=== PATIENT | male | born 1960 | race Caucasian/White ===

== ENCOUNTER 2019-05-13 02:58 | Inpatient (IN) | payer OTHER ==
[2019-05-13] MEDS ORDERED: Diltiazem IV push/loading dose 5 MG/ML 5 ML vial (25 mg) IV SLOW PU ONE (03:07)
[2019-05-13] MEDS ORDERED: NS 0.9% 1000 ML** 1,000 ML IV ONE ×2 (03:17→04:04)
[2019-05-13] MEDS ORDERED: Ondansetron INJ* 2 MG/ML VIAL IV ONE (03:17)
[2019-05-13] MEDS ORDERED: NS 0.9% 100 ML* 100 ML ONE (03:17)
--- NOTE | 2019-05-13 03:21 | ED ---
HPI Chest Pain - HPI Summary HPI Summary: This pt is a 58 y/o male presenting to [facility] c/o chest pain, abd pain, nausea and vomiting. Pt reports he has not been feeling well for the past 2 weeks, feeling weak with malaise. Yesterday, 05/12/19, pt woke up feeling weak again and blood sugar was 65. He notes he had indigestion pain on 05/12 after eating and took 2 antacid tablets. He notes the last time he ate was at 14:30 on 05/12 and had 2 episodes of emesis at 23:00 on 05/12. He notes prior to vomiting for the whole day he had been feeling weak. The first time he vomited he describes a sandwich he had earlier and the second time he vomited he describes dark brown emesis. Currently he notes he has abd pain and chest tightness. Denies hx of afib. Pt does report hx arrhythmia for which he has been seeing his negotiations director for over 1 year now. He also has elevated kidney level and is being followed up by a gang supervisor pipe lines (who discontinued his lisinopril and cut back his metformin). Pt is visiting from [place]. - History of Current Complaint Chief Complaint: EDChestPainROMI Hx Obtained From: Patient Onset/Duration: Started Hours Ago, Still Present Timing: Lasting Hours Current Severity: Moderate Pain Intensity: 5 Pain Scale Used: 0-10 Numeric Chest Pain Location: Mid Sternal Chest Pain Radiates: No Character: Tightness Aggravating Factor(s): Nothing Alleviating Factor(s): Nothing Associated Signs and Symptoms: Positive: Chest Pain, Weakness, Nausea, Abdominal Pain, Vomiting. Negative: Fever, Chills - Allergy/Home Medications Allergies/Adverse Reactions: Allergies Allergy/AdvReac Type Severity Reaction Status Date / Time No Known Allergies Allergy Verified 05/13/19 03:17 Home Medications: Home Medications Aspirin [Adult Low Dose Aspirin EC] 81 mg PO DAILY 05/13/19 [History Confirmed 05/13/19] Carvedilol [Coreg] 25 mg PO BID 05/13/19 [History Confirmed 05/13/19] Fenofibrate,Micronized [Fenofibrate] 134 mg PO DAILY 05/13/19 [History Confirmed 05/13/19] Folic Acid 1 mg PO DAILY 05/13/19 [History Confirmed 05/13/19] Glyburide/Metformin HCl [Glyburide/Metformin HCl 5-500 mg] 4 tab PO DAILY [History Confirmed 05/13/19] Linagliptin (NF) [Tradjenta (NF)] 5 mg PO DAILY 05/13/19 [History Confirmed ] Rosuvastatin Calcium 20 mg PO DAILY 05/13/19 [History Confirmed 05/13/19] PMH/Surg Hx/FS Hx/Imm Hx Endocrine/Hematology History: Reports: Hx Diabetes - Type 2 Cardiovascular History: Reports: Hx Hypercholesterolemia, Hx Hypertension Denies: Hx Atrial Fibrillation History: Reports: Other Problems/Disorders - elevated kidney level Infectious Disease History: No Infectious Disease History: Denies: Traveled Outside the [place] in Last 30 Days - Family History Known Family History: Positive: Non-Contributory - Social History Alcohol Use: None Substance Use Type: Reports: None Smoking Status (MU): Never Smoked Tobacco Review of Systems Negative: Fever Positive: Chest Pain Positive: Abdominal Pain, Vomiting, Nausea Positive: Weakness All Other Systems Reviewed And Are Negative: Yes Physical Exam - Summary Physical Exam Summary: Appearance: Well-nourished, Anxious appearing. Middle aged man lying on the stretcher in no acute distress. Skin: Warm, dry, no obvious rash. Somewhat pale. Eyes: sclera anicteric, no conjunctival pallor ENT: mucous membranes moist, pharynx appears normal Neck: Supple, nontender Respiratory: Clear to auscultation, no signs of respiratory distress Cardiovascular: Notably marked tachycardia with irregularly irregular rhythm. No murmurs. Normal distal pulses in tibial and radial bilaterally. Abdomen: Soft, nontender, normal active bowel sounds present Musculoskeletal: Normal, Strength/ROM Intact Neurological: A&Ox3, awake and alert, mentation is normal, speech is fluent and appropriate Psychiatric: affect is normal, does not appear anxious or depressed Triage Information Reviewed: Yes Vital Signs On Initial Exam: Initial Vitals Temp Pulse Resp BP Pulse Ox 98.0 F 112 20 159/94 100 05/13/19 02:58 05/13/19 02:58 05/13/19 02:58 05/13/19 02:58 05/13/19 02:58 Vital Signs Reviewed: Yes Diagnostics - Vital Signs Vital Signs Temp Pulse Resp BP Pulse Ox 05/13/19 02:58 98.0 F 112 20 159/94 100 - Laboratory Result Diagrams: 07/27/19 03:32 05/13/19 09:25 Lab Statement: Any lab studies that have been ordered have been reviewed, and results considered in the medical decision making process. - Radiology chest XR Radiology Interpretation Completed By: ED Physician Summary of Radiographic Findings: no acute process - EKG 03:01 Cardiac Rate: Tachycardia - at 152 bpm EKG Rhythm: Atrial Fibrillation Summary of EKG Findings: Atrial fibrillation with RVR and diffuse ST depressions likely rate related ischemia. 03:24 Cardiac Rate: NL - at 99 bpm EKG Rhythm: Atrial Fibrillation Summary of EKG Findings: Posterior leads - no posterior STEMI. Re-Evaluation - Re-Evaluation First Eval Re-Evaluation Time: 04:01 Change: Improved Comment: Chest pain has nearly resolved. His heart rate is down to nearly 100. Chest Pain Course/Dx - Course Assessment/Plan: Pt is a 58 y/o male, with hx of DM, HTN, presenting to [facility] c/ o chest pain, abd pain, nausea and vomiting. Pt reports he has not been feeling well for the past 2 weeks, feeling weak with malaise. Yesterday, 05/12/19, pt woke up feeling weak again and blood sugar was 65. Pt with 2 episodes of emesis. Currently he notes he has abd pain and chest tightness. Denies hx of afib. Test results remarkable for hemoglobin of 11.2, hematocrit of 31, BUN of 38, creatinine of 3.89, glucose of 387, calcium 13.1, troponin of 0.49. In the ED course the pt was given IV fluids, Cardizem, insulin, Zofran. Discussed the case with Dr. Chaparro, hospitalist, who accepted the pt for admission. Dx: acute kidney injury, rapid afib with RVR, moderate hypercalcemia. - Diagnoses Provider Diagnoses: Acute kidney injury, Atrial fibrillation with RVR, Hypercalcemia - Provider Notifications Discussed Care Of Patient With: Lizette Chaparro - hospitalist Time Discussed With Above Provider: 04:09 Instructed by Provider To: Admit As Inpatient - Critical Care Time Critical Care Time: 30-74 min Discharge - Sign-Out/Discharge Documenting (check all that apply): Patient Departure - Admit to [facility] All imaging exams completed and their final reports reviewed: No Patient Received Moderate/Deep Sedation with Procedure: No - Discharge Plan Condition: Stable Disposition: ADMITTED TO [facility] - Billing Disposition and Condition Condition: STABLE Disposition: Admitted to [facility] - Attestation Statements Document Initiated by Marlyn: Yes Documenting Luis Aibremington: Chinyere Esquivel Provider For Whom Marlyn is Documenting (Include Credential): Nik Mays MD Scribe Attestation: Chinyere Moran scribed for Nik Mays MD on 05/14/19 at 0220. Scribe Documentation Reviewed: Yes Provider Attestation: The documentation as recorded by the Chinyere meadows accurately reflects the service I personally performed and the decisions made by me, Nik Mays MD Status of Scribe Document: Viewed
[2019-05-13 03:38] LABS: ABS Lymphocytes 0.8 10^3/ul (1.0-4.8); ABS Monocytes 0.4 10^3/ul (0-0.8); ABS Neutrophils 9.3 10^3/ul (1.5-7.7); Eosinophil % 0.1 %; Hematocrit 31 % (42-52); Hemoglobin 11.2 g/dL (14.0-18.0); Lymphocyte % 7.4 %; Mean Corpuscular HGB Conc 36 g/dL (31-36); Mean Corpuscular Hemoglobin 31 pg (27-31); Mean Corpuscular Volume 85 fL (80-94); Mean Platelet Volume 8.4 fL (7.4-10.4); Platelet Count 172 10^3/uL (150-450); Red Blood Count 3.63 10^6 /uL (4.18-5.48); Red Cell Distribution Width 14 % (10-15); White Blood Count 10.5 10^3/uL (3.5-10.8)
[2019-05-13] MEDS: Diltiazem IV VIAL* 125 MG in NS 0.9% 100 ML* 100 ML IV ONE ×2 (03:44→04:21)
[2019-05-13 03:54] LABS: ALT 19 U/L (7-52); AST 28 U/L (13-39); Albumin 4.1 g/dL (3.2-5.2); Albumin/Globulin Ratio 1.2 (1-3); Alkaline Phosphatase 41 U/L (34-104); Anion Gap 14 mmol/L (2-11); BUN/Creatinine Ratio 9.8 (8-20); Blood Urea Nitrogen 38 mg/dL (6-24); CO2 Carbon Dioxide 25 mmol/L (22-32); Chloride 96 mmol/L (101-111); EGFR African American 19.5 (>60); EGFR Non-African American 16.1 (>60); Globulin 3.4 g/dL (2-4); Glucose 387 mg/dL (70-100); Potassium 3.5 mmol/L (3.5-5.0); Sodium 135 mmol/L (135-145); Total Protein 7.5 g/dL (6.4-8.9)
[2019-05-13 03:58] LABS: Calcium 13.1 mg/dL (8.6-10.3)
[2019-05-13] MEDS ORDERED: Insulin REGULAR(*) 1 UNITS UNIT SUBCUT ONE (04:10)
[2019-05-13 04:14] LABS: TSH (Thyroid Stimulating Horm) 0.91 mcIU/mL (0.34-5.60)
[2019-05-13 04:21] LABS: INR 1.24 (0.82-1.09)
[2019-05-13] MEDS ORDERED: PROCHLORPERAZINE INJ 5 MG/ML 2 ML VIAL IV ONE (04:36)
[2019-05-13 04:51] LABS: Troponin I 0.49 ng/mL (<0.04)
[2019-05-13] MEDS ORDERED: Morphine INJ* 2 MG/ML 1 ML SYRINGE (TWO MG - NEW SYRINGE VERSION) IV ONE (05:30)
[2019-05-13] MEDS ORDERED: Dextrose 50% VIAL 50 ml IV PUSH PRN (05:35)
[2019-05-13] MEDS ORDERED: Ondansetron INJ* 2 MG/ML VIAL IV PRN (05:40)
[2019-05-13] MEDS ORDERED: Acetaminophen TAB* 325 MG PO PRN (05:40)
[2019-05-13] MEDS ORDERED: Dextrose 50% Syringe 50 ML* 25 GM/50 ML SYRINGE IV PUSH PRN (05:45)
[2019-05-13] MEDS ORDERED: Insulin LISPRO* 1 UNITS UNIT SUBCUT ONE (05:45)
[2019-05-13] MEDS ORDERED: Heparin DRIP 25,000 UNITS(*) 25,000 UNITS/500 ML BAG IV SCH (05:45)
[2019-05-13] MEDS ORDERED: Metoprolol Tartrate IV* 1 MG/ML 5 ML VIAL IV ONE (05:55)
[2019-05-13] MEDS ORDERED: Diltiazem DRIP* 100 MG/100 ML ADDV.BAG IV SCH (06:00)
[2019-05-13] MEDS ORDERED: Insulin LISPRO* 1 UNITS UNIT SUBCUT SCH (06:00)
[2019-05-13] MEDS ORDERED: Heparin VIAL(*) 5000 UNITS/ML VIAL (FIVE THOUSAND) IV PRN (06:18)
[2019-05-13 06:34] LABS: C Reactive Protein 5.89 mg/L (<8.01)
[2019-05-13 06:45] LABS: Urine Appearance Clear; Urine Bacteria Absent (Absent); Urine Bilirubin Negative (Negative); Urine Blood 2+ (Negative); Urine Color Straw; Urine Glucose 3+(>=500 mg/dL) (Negative); Urine Ketones Trace (Negative); Urine Nitrite Negative (Negative); Urine Protein 1+(30 mg/dL) (Negative); Urine Red Blood Cell 1+(3-5/hpf) (Absent); Urine Urobilinogen Negative (Negative); Urine White Blood Cell Trace(0-5/hpf) (Absent)
[2019-05-13 06:49] LABS: Troponin I 1.45 ng/mL (<0.04)
[2019-05-13] MEDS ORDERED: Diltiazem 125 mg in 125 mL D5W PREMIX (continuous infusion) IV SCH (07:00)
[2019-05-13] MEDS: Heparin DRIP 25,000 UNITS(*) 25,000 UNITS/500 ML BAG IV SCH (07:34)
[2019-05-13] MEDS: Aspirin EC TAB* 81 MG TAB.EC PO SCH (07:54)
[2019-05-13] MEDS: Atorvastatin* 40 MG TAB PO SCH (07:54)
[2019-05-13] MEDS: NS 0.9% 1000 ML** 1,000 ML IV SCH ×2 (07:55→14:59)
[2019-05-13] MEDS ORDERED: Diltiazem IV BAG* D5W Premix 125 MG/125 ML BAG IV SCH (09:00)
[2019-05-13 09:51] LABS: Calcium 11.4 mg/dL (8.6-10.3); EGFR African American 18.8 (>60); EGFR Non-African American 15.5 (>60); Potassium 3.5 mmol/L (3.5-5.0)
--- NOTE | 2019-05-13 10:26 | CARD ---
ECHOCARDIOGRAM REPORT: DATE OF PROCEDURE: 05/13/19 REASON FOR EVALUATION: Chest pain, non-ST elevation IL, abnormal EKG. This was an urgent focussed study to assess wall motion. Study revealed repeat of a svuz-[id number] ly reduced LV function with EF of 40% to 45%. There appeared to be hypokinesis of the inferior/poste rior segments with an area of thinning and akinesis towards the base of the inferior wall. This coul d represent old infarct with yevgeniy-infarct ischemic dysfunction versus recent IL. The patient is being followed clinically. [id number]/[facility] #: [id number]
--- NOTE | 2019-05-13 11:07 | HP ---
CC: Dr. Burns; Dr. Simone Begum * HISTORY AND PHYSICAL: DATE OF ADMISSION: 05/13/19 PRIMARY CARE PROVIDER: Dr. Simone Begum from [place], [place], the phone number is [phone]. CHIEF COMPLAINT: Chest pain, nausea, and vomiting. HISTORY OF PRESENT ILLNESS: Mr. Hidalgo is a 58-year-old male with history of hypertension, diabetes who was driving from [place] to [place] yesterday to visit his daughter at a camp in the [place] area. The patient stated that at approximately 4 p.m. when in the car, he started having nausea and vomiting and substernal chest pain. The pain was at approximately 6/10 in intensity. He came in to the emergency department at 3 a.m. on 05/13/19 complaining of chest pain. He was noted to be in atrial fibrillation with rapid ventricular response with a heart rate in the 150s. He also continued to complain of chest pain. His calcium was markedly elevated at 13 and his creatinine was 3.8. The patient stated that approximately 2 weeks ago, he went to see a welding pantograph machine operator since his kidney function tests were abnormal. This was the first time he has ever seen a kidney doctor. He stated that his welding pantograph machine operator adjusted his lisinopril and a halved the dose of his metformin and his subsequent lab work was unremarkable. He also at that point had renal ultrasound that was also unremarkable. Ever since then for the past 2 weeks, he has been having heartburn. He has been taking Tums, up to 10 Tums a day. He stated that heartburn was worse when he was lying down. He also had been feeling worn down and tired and occasionally would have nausea and vomiting. He had a couple of episodes over the past 2 weeks when his sugars in the morning were in the 60s. His appetite had been poor also. He denies any shortness of breath. He is going to be admitted to the intensive care unit with diagnoses of unstable angina and atrial fibrillation. PAST MEDICAL HISTORY: 1. History of hypertension. 2. History of diabetes, type 2. 3. Possible chronic kidney disease, see above. 4. History of questionable coronary artery disease. The patient stated that he had a cardiac catheterization 2 years ago and he did not need to have any intervention done, but he had been following up with a ssis developer yearly ever since then. 5. History of recent rotator cuff surgery in November 2018. MEDICATIONS: Include: 1. Tums up to 10 a day. 2. Aspirin 81 mg daily. 3. Rosuvastatin 20 mg daily. 4. Trajenta 5 mg daily. 5. Folic acid 1 mg daily. 6. Fenofibrate 134 mg daily. 7. Coreg 25 mg b.i.d. 8. Glyburide with metformin 5/500 four tablets daily. ALLERGIES: No known drug allergies. FAMILY HISTORY: Mother with history of angioplasty in her 50s. Father with congenital heart disease who had surgery for it when he was in his 60s. Father and uncle on the father's side also has history of prostate cancer. SOCIAL HISTORY: The patient denies any tobacco, alcohol, or drug use. He lives with his who is his surrogate, Emily Hidalgo. He had not worked since November 2018 since his rotator cuff surgery. He is a full code. REVIEW OF SYSTEMS: Please see history of present illness. All the remaining 12 systems were reviewed with the patient and were otherwise negative. PHYSICAL EXAMINATION GENERAL: The patient is a very pleasant 58-year-old male, who is in no acute distress. Alert, awake, and oriented x3. VITAL SIGNS: Blood pressure of 106/56, please note that the patient is on 10 mg /hour of Cardizem drip right now, heart rate of 98 and irregular, respiratory rate 23, oxygen saturation 92% on 2 L of oxygen nasal cannula, temperature 98.6. HEENT: Head: Atraumatic, normocephalic. Eyes: Pupils are equal, reactive to light and accommodation. Oropharynx clear. Mucosa dry. NECK: Supple. No JVD, no bruits bilaterally. RESPIRATORY: Crackles at bilateral bases, otherwise clear. CARDIOVASCULAR: Irregularly irregular rhythm with no murmur. ABDOMEN: Soft, nontender. Bowel sounds are present in all 4 quadrants. EXTREMITIES: There is no edema. Pulses are +2 bilaterally. No clubbing or cyanosis. PSYCHIATRIC: On psychiatric evaluation, oriented x3 with no evidence of anxiety , depression. SKIN: On evaluation of the skin, no ecchymotic areas or rashes noted. DIAGNOSTIC STUDIES/LAB DATA: Laboratory data showed white blood cell count of 10.5, hemoglobin 11.2, hematocrit of 31, platelets of 172, MCV was 85. INR of 1.24. Sodium of 135, potassium 3.5, chloride 96, carbon dioxide 25, BUN 38, creatinine of 3.89, glucose was 387. Calcium was 13.1. Troponin 0.49. C- reactive protein 5.89. TSH was 0.91. Liver function tests were unremarkable. EKG showed atrial fibrillation initially with a heart rate of 150. Second EKG showed heart rate at [address] depression in leads 1, 2, 3, aVF, V1 and V6. The patient's portable chest x-ray showed coarse vascular markings, no clear- cut infiltrates or overt CHF. ASSESSMENT AND PLAN: 1. Unstable angina. The patient is going to be admitted to the intensive care unit, on heparin drip. I discussed the case with Dr. Burns. We will administer 1 dose of Lopressor 5 mg IV and watch for the patient's blood pressure. The patient's blood pressure was lower from 110s to 95 when his blood pressure medicines administered. That was at that time when the patient had Cardizem drip on board. Transthoracic echocardiogram is going to be obtained. 2. In regards to the patient's atrial fibrillation with rapid ventricular response, the patient is going to be continued on Cardizem drip. The patient also is going to be heparinized. 3. The patient has hypercalcemia. I suspect taking 10 Tums a day may contribute to hypercalcemia, although I am not sure if it could be that severe. The patient also has renal failure that could be secondary to hypercalcemia, although the patient likely has underlying chronic disease. The patient is going to be treated with intravenous fluids. The patient received already a bolus of intravenous fluids in the emergency department. He is going to receive another bag. Then, he is going to continue with normal saline at 150 mL an hour. Acute renal failure with hypercalcemia brings a differential and possibility of diagnosis of multiple myeloma. Serum protein electrophoresis, PTH is going to be obtained. 4. The patient has acute renal failure. Once again, his hypercalcemia may be contributing. The patient also appears prerenal and intravenous fluids are going to be instituted. 5. For his diabetes, the patient is going to be placed on insulin sliding scale. 6. For DVT prophylaxis, the patient is going to be placed on heparin drip. 7. For code status, the patient is a full code and his surrogate is his . TIME SPENT: Approximately 75 minutes was spent on admission of this patient, more than half of that time was spent [id number] with the patient during the interview and physical exam. [id number]/[facility] #: [id number] GERRI
[2019-05-13 11:41] LABS: C Reactive Protein 7.72 mg/L (<8.01)
[2019-05-13 11:45] LABS: Troponin I 13.01 ng/mL (<0.04)
[2019-05-13] MEDS: Pantoprazole TAB * 40 MG TAB PO SCH (12:18)
[2019-05-13] MEDS: Metoprolol Tartrate IV* 1 MG/ML 5 ML VIAL IV SCH ×3 (12:19→23:45)
[2019-05-13 12:38] LABS: Erythrocyte Sed Rate 48 mm/Hr (0-19)
[2019-05-13] MEDS: Insulin LISPRO* 1 UNITS UNIT SUBCUT SCH ×4 (12:41→23:57)
[2019-05-13 14:28] LABS: Troponin I 32.56 ng/mL (<0.04)
[2019-05-13 17:52] LABS: Troponin I 35.72 ng/mL (<0.04)
--- NOTE | 2019-05-13 20:46 | CONS ---
CC: Dr. Boyd Burns CARDIOLOGY CONSULTATION: DATE OF CONSULT: 05/13/19 CONSULTING PROVIDER: Dr. Lizette Chaparro. REASON FOR EVALUATION: Chest pain, AFib, non-ST elevation TN. HISTORY OF PRESENT ILLNESS: This is a very pleasant 58-year-old gentleman from [place] who has a history of hypertension, diabetes, hyperlipidemia, and coronary disease. He is a resident of [place] and is traveling here on leisure. We do not have access to his old records at this point in time. He said that about a month ago he went to his doctor for routine visit and was thought to have abnormal renal function. He had an evaluation with the cold rolling supervisor who repeated labs and thought that they were acceptable. His lisinopril was discontinued at that time and his metformin was cut in half. He says over the last 2 weeks he has been more fatigued. He did have a left rotator cuff repair in November and has been out on disability. He has been doing some yard work. He said he walks 5 miles a day cumulatively, but only a mile at a time, and last did that a week ago. His says that he has been more fatigued recently and he has also developed, what he calls, indigestion over the last 2 weeks. He said that after eating certain meals, particularly fatty meals like macaroni and cheese, he develops a burning sensation in his chest, sometimes it is associated with gas. It is worse lying down, better sitting up, and better with taking Tums. He has been taking Tums 1 or 2 tabs with relief of his pain within 5 or 10 minutes. He has not had chest pain with exertion. He left [place] yesterday around 10 and drove to [place] to take his son to the football camp. He said that he stopped to get something to eat on the way and about 2 hours later started having some chest discomfort, which was relieved with 2 Tums at about 3:30 p.m. His pain returned on and off. He said that at about 6:30 p.m. he had the pain and it was continuing and felt like a tightness. About 11 p.m. he vomited twice, he went back to bed. About 2:15 he woke up and continued to have chest discomfort and shortness of breath and decided to come to the emergency room. There he was found to be in AFib with a rapid ventricular response to 150s. He was treated with IV diltiazem with some slowing to 100 and then he got IV Lopressor and subsequently converted to sinus rhythm some time in the director labor standards hours, approximately 6:30 or so. He denies any chest discomfort at present. He has had no syncope or near syncope. No orthopnea or peripheral edema. He has a history of an abnormal EKG a couple of years ago and underwent cardiac catheterization. According to his he was told that he had a disease that did not need to be revascularized, he has been managed medically. He was also noted to have a high calcium on this admission and is being treated with hydration, calcium at 13.1. He has never been told of a high potassium. He denies rheumatic fever, rheumatic heart disease or myocardial infarction. He denies tobacco use. PAST MEDICAL HISTORY: Includes renal insufficiency, nonobstructive coronary disease as per the patient, with a cath 2 to 3 years ago, obesity, hypertension , diabetes type 2 for 10 years. The patient said that he had ultrasound of his kidneys recently, which revealed possibility of nephrolithiasis. PAST SURGICAL HISTORY: Includes left shoulder surgery. MEDICATIONS: As outpatient include: 1. Aspirin 81 mg daily. 2. Rosuvastatin 20. 3. Linagliptin 5 mg a day. 4. Folic acid 1 a day. 5. Fenofibrate 134 mg daily. 6. Carvedilol 25 mg b.i.d. 7. Glyburide/metformin 4 tablets a day. As an inpatient: 1. He is on IV diltiazem at 2.5 mL an hour. 2. IV heparin per protocol. 3. Morphine 2 mg IV q.4 p.r.n. 4. Zofran 4 mg IV q.4 p.r.n. 5. Sodium chloride IV. 6. Aspirin 81 mg a day. 7. Acetaminophen p.r.n. 8. Atorvastatin 40 mg a day. ALLERGIES: He denies any allergies. FAMILY HISTORY: He has a sister who had coronary disease in her 40s and 2 brothers who are okay, and one brother who with complications of quadriplegia and surgery after a traumatic accident. SOCIAL HISTORY: He is an electrical engineering technologist. He is and has 6 children. He is accompanied by his , Ramona. He denies caffeine. REVIEW OF SYSTEMS: Review of systems x10 was negative, except as above and for some episodes of hypoglycemia with sugars down to 40s, which responded to juice. He has had some of those episodes over the last couple of weeks and has had relief with treatment of the low glucoses. He denies any change in his appetite or weight loss. No constipation or diarrhea. PHYSICAL EXAM: He is a well-developed, obese gentleman, in no apparent distress. Weight 202 pounds. Blood pressure 95/67, heart rate of 82, with O2 sats of 96% on 2 L nasal cannula. Atraumatic, normocephalic. Extraocular muscles are intact. Sclerae are anicteric. No significant JVD. Cardiac Exam: S1 and S2. No clear murmurs, gallops or rubs, somewhat distant. Chest was clear. No CVAT. Abdominal Exam: Bowel sounds present, nontender. Femoral pulses are intact without bruits. Distal pulses are intact. No edema. Motor strength is 5/5 bilaterally. Deep tendon reflexes are 1/4 bilaterally. No cervical adenopathy. No hepatosplenomegaly. DIAGNOSTIC STUDIES/LAB DATA: Include sodium 135, potassium at 3.5, chloride of 96, BUN of 38, creatinine of 3.89, glucose 387, calcium at 13.1. Troponin was initially 0.49 at 3:30 a.m. and went up to 1.45 at 6 a.m. CRP of 5.86. Albumin of 4.4. PTH intact was 5.7, mildly reduced, and calcium PTH intact was elevated at 11.8. Lactic acid elevated at 2.8. EKG from 3 a.m. revealed atrial fibrillation with rapid ventricular response and marked ST depressions of 3 to 5 mm, most prominent in the left precordial leads, with a rate of 152. EKG from 3:24 a.m. revealed improvement in the ST depressions to about 2 mm downsloping with a heart rate of 99. An EKG from 9: 18 revealed sinus rhythm at 78, with about [address] depressions laterally and inferiorly and counterclockwise rotation, possible old posterior TN. Bedside echo focus study was performed, which revealed [id number] reduced EF of 40% to 45% with basal inferior thinning and akinesis and inferior posterior hypokinesis. Chest x-ray with mildly increased patchy density over the martha, it could be seen in the setting of vascular congestion, multifocal pneumonia or early pneumonitis. CBC revealed anemia with a hematocrit of 31. IMPRESSION: Mr. Hidalgo appears to have coronary disease and presents with 2 weeks of symptoms of malaise and chest pain of unclear etiology, culminating in a presentation with shortness of breath, chest pain, and atrial fibrillation with rapid ventricular response and marked EKG changes. His STs have improved and his pain has resolved; however, his echo does reveal significant LV dysfunction. It is unclear whether this was stress related demand type myocardial infarction versus new acute coronary syndrome given the presence of hyperkalemia and renal failure. I suspect that there is another systemic process that may be provoking his physiologic disturbances. In addition he has , what appears to be, acute renal failure which puts him at increased risk for complications with cath. I discussed this with him and his , Ramona, and for the time being I have recommend the followin. We would continue IV heparin, as you are doing. 2. We would restart his beta nano as tolerated from a both blood pressure and hr standpoint for ischemic LV dysfunction. 3. We will consider adding nitrates if he has recurrent pain and if his blood pressure will tolerate it. 4. We would try to maintain his potassium over 4. 5. We would follow serial troponins and EKGs. 6. He is to have an echo tomorrow. 7. We would continue treating his hypercalcemia and avoid provoking hypokalemia in the process. 8. Workup is to continue as per the hospitalist service for underlying causes hypocalcemia, which could include multiple myeloma. 9. We would continue his statin. 10. We would continue monitoring in the ICU. Further recommendation will depend on his clinical course. [id number]/[facility] #: [id number] GERRI
[2019-05-13 21:23] LABS: Troponin I 31.92 ng/mL (<0.04)
[2019-05-14 00:23] LABS: Troponin I 26.03 ng/mL (<0.04)
[2019-05-14] MEDS: Morphine INJ* 2 MG/ML 1 ML SYRINGE (TWO MG - NEW SYRINGE VERSION) IV PRN (05:11)
[2019-05-14] MEDS: Metoprolol Tartrate IV* 1 MG/ML 5 ML VIAL IV SCH (05:11)
[2019-05-14] MEDS: Heparin DRIP 25,000 UNITS(*) 25,000 UNITS/500 ML BAG IV SCH (05:13)
[2019-05-14] MEDS: NS 0.9% 1000 ML** 1,000 ML IV SCH ×2 (05:14→10:13)
[2019-05-14 05:40] LABS: ABS Eosinophils 0.1 10^3/ul (0-0.6); ABS Lymphocytes 1.4 10^3/ul (1.0-4.8); ABS Monocytes 0.5 10^3/ul (0-0.8); ABS Neutrophils 5.6 10^3/ul (1.5-7.7); Eosinophil % 0.8 %; Hematocrit 25 % (42-52); Hemoglobin 8.8 g/dL (14.0-18.0); Lymphocyte % 18.7 %; Mean Corpuscular HGB Conc 35 g/dL (31-36); Mean Corpuscular Hemoglobin 31 pg (27-31); Mean Corpuscular Volume 87 fL (80-94); Mean Platelet Volume 8.4 fL (7.4-10.4); Platelet Count 134 10^3/uL (150-450); Red Blood Count 2.88 10^6 /uL (4.18-5.48); Red Cell Distribution Width 15 % (10-15); White Blood Count 7.7 10^3/uL (3.5-10.8)
[2019-05-14] MEDS: Insulin LISPRO* 1 UNITS UNIT SUBCUT SCH ×5 (05:44→19:51)
[2019-05-14 05:58] LABS: Anion Gap 6 mmol/L (2-11); BUN/Creatinine Ratio 10.4 (8-20); Blood Urea Nitrogen 41 mg/dL (6-24); CO2 Carbon Dioxide 27 mmol/L (22-32); Calcium 10.3 mg/dL (8.6-10.3); Chloride 106 mmol/L (101-111); EGFR African American 19.1 (>60); EGFR Non-African American 15.8 (>60); Glucose 168 mg/dL (70-100); Potassium 3.4 mmol/L (3.5-5.0); Sodium 139 mmol/L (135-145)
[2019-05-14 06:16] LABS: Troponin I 13.88 ng/mL (<0.04)
[2019-05-14] MEDS ORDERED: Perflutren Lipid Microsphere* 3 ML VIAL ONE (08:05)
[2019-05-14 08:07] LABS: % Iron Saturation 16 % (15-55); Iron 49 ug/dL (50-212); Total Iron Binding Capacity 304 mcg/dL (250-450); Transferrin 217 mg/dL (203-362)
[2019-05-14 08:30] LABS: Ferritin 339.2 ng/mL (24-336)
[2019-05-14 08:34] LABS: Folate > 20.00 ng/mL (>3.99)
[2019-05-14] MEDS: Atorvastatin* 40 MG TAB PO SCH (08:57)
[2019-05-14] MEDS: Aspirin EC TAB* 81 MG TAB.EC PO SCH (08:57)
[2019-05-14] MEDS: Pantoprazole TAB * 40 MG TAB PO SCH (08:57)
[2019-05-14] MEDS ORDERED: Potassium Chlor TAB* 20 MEQ TAB.ER PO ONE (09:08)
[2019-05-14] MEDS: Nitroglycerin TAB 0.4 MG* 0.4 MG TAB SL PRN ×4 (09:39→15:47)
[2019-05-14] MEDS ORDERED: Nitro 2% OINT* (Nitroglycerin) 1 INCH/PAK PAK TOPICAL ONE ×2 (10:19→15:52)
[2019-05-14] MEDS ORDERED: Carvedilol TAB* 25 MG PO SCH ×2 (10:44→21:00)
[2019-05-14] MEDS ORDERED: Metoprolol Tartrate IV* 1 MG/ML 5 ML VIAL IV ONE ×2 (10:50→16:24)
--- NOTE | 2019-05-14 10:50 | PN ---
Subjective Date of Service: 05/14/19 Interval History: Pt is feeling ok currently but he has had 2 episodes of chest heaviness this AM. He got up to the toilet and developed chest pain. He received a NTG tab SL and the pain was relieved completely. He did have mild SOB with each episode of chest heaviness this AM. No other acute issues today. Objective Active Medications: Acetaminophen (Tylenol Tab*) 650 mg PO Q4H PRN PRN Reason: FEVER/PAIN Last Admin: 05/13/19 07:54 Dose: 650 mg Aspirin (Aspirin Ec Tab*) 81 mg PO DAILY [facility] Last Admin: 05/14/19 08:57 Dose: 81 mg Atorvastatin Calcium (Lipitor*) 40 mg PO DAILY [facility] Last Admin: 05/14/19 08:57 Dose: 40 mg Carvedilol (Coreg Tab*) 12.5 mg PO BID [facility] Dextrose (Dextrose 50% Vial 50 Ml*) 25 ml IV PUSH .FOR FS < 60 - SS PRN PRN Reason: FS < 60 Heparin Sodium (Porcine) (Heparin Vial(*)) 0 units IV .BOLUS PRN PRN Reason: HEPARIN DRIP PROTOCOL Last Admin: 05/13/19 07:32 Dose: 4,000 units Sodium Chloride (Ns 0.9% 1000 Ml) 1,000 mls @ 150 mls/hr IV PER RATE [facility] Last Admin: 05/14/19 10:13 Dose: 150 mls/hr Heparin Sodium/Dextrose (Heparin Drip 25,000 Units(*)) 25,000 units in 500 mls @ 0 mls/hr IV PER RATE [facility]; Protocol Last Admin: 05/14/19 05:13 Dose: 20 mls/hr Insulin Human Lispro (Humalog*) 0 units SUBCUT ACHS [facility]; Protocol Metoprolol Tartrate (Lopressor Iv*) 5 mg IV Q6H [facility] Stop: 05/14/19 18:00 Last Admin: 05/14/19 05:11 Dose: 5 mg Morphine Sulfate (Morphine Inj (Syringe))*) 2 mg IV Q4H PRN PRN Reason: Pain - Mod to severe Last Admin: 05/14/19 05:11 Dose: 2 mg Nitroglycerin (Nitroglycerin Tab 0.4 Mg*) 0.4 mg SL Q5M PRN PRN Reason: ANGINA Last Admin: 05/14/19 10:19 Dose: 0.4 mg Ondansetron HCl (Zofran Inj*) 4 mg IV Q4H PRN PRN Reason: NAUSEA/VOMITING Pantoprazole Sodium (Protonix Tab*) 40 mg PO DAILY [facility] Last Admin: 05/14/19 08:57 Dose: 40 mg Vital Signs - 8 hr 05/14/19 05/14/19 05/14/19 03:00 03:01 03:15 Temperature 97.1 F Pulse Rate 82 82 Respiratory 12 21 Rate Blood Pressure 137/73 (mmHg) O2 Sat by Pulse 89 90 Oximetry 05/14/19 05/14/19 05/14/19 04:00 05:00 05:11 Temperature Pulse Rate 81 90 Respiratory 19 18 20 Rate Blood Pressure 118/75 135/80 (mmHg) O2 Sat by Pulse 95 89 Oximetry 05/14/19 05/14/19 05/14/19 06:00 06:01 06:30 Temperature Pulse Rate 75 76 76 Respiratory 19 19 16 Rate Blood Pressure 116/67 142/74 (mmHg) O2 Sat by Pulse 99 98 99 Oximetry 05/14/19 05/14/19 05/14/19 07:00 07:30 08:00 Temperature 98.3 F Pulse Rate 77 81 83 Respiratory 16 14 20 Rate Blood Pressure 118/75 120/70 130/81 (mmHg) O2 Sat by Pulse 100 97 94 Oximetry 05/14/19 05/14/19 05/14/19 08:30 09:00 09:30 Temperature Pulse Rate 81 81 90 Respiratory 24 25 30 Rate Blood Pressure 132/74 135/85 160/95 (mmHg) O2 Sat by Pulse 95 97 94 Oximetry 05/14/19 09:43 Temperature Pulse Rate 91 Respiratory 25 Rate Blood Pressure 150/89 (mmHg) O2 Sat by Pulse 95 Oximetry Oxygen Devices in Use Now: Nasal Cannula Appearance: Middle aged male sitting up in bed, NAD Eyes: No Scleral Icterus Ears/Nose/Mouth/Throat: Mucous Membranes Moist Respiratory: Symmetrical Chest Expansion and Respiratory Effort, Clear to Auscultation Cardiovascular: NL Sounds; No Murmurs; No JVD, RRR, No Edema Abdominal: NL Sounds; No Tenderness; No Distention Extremities: No Clubbing, Cyanosis Skin: No Nodules or Sclerosis Neurological: Alert and Oriented x 3 Result Diagrams: 05/14/19 11:40 05/14/19 05:21 Microbiology and Other Data: Microbiology 05/13/19 06:00 Urine Culture - Final Urine No Growth (<1,000 CFU/mL) 05/13/19 07:00 Nasal Screen MRSA (PCR) - Final Nasal Mrsa Not Detected Assess/Plan/Problems-Billing Mr Hidalgo is a 58 yo M who has a h/o non-obstructive CAD, type II DM and CKD who presented to the ER with c/o chest pain and was admitted for NSTEMI. - Patient Problems (1) NSTEMI (non-ST elevated myocardial infarction) Current Visit: Yes Status: Acute Code(s): I21.4 - NON-ST ELEVATION (NSTEMI) MYOCARDIAL INFARCTION SNOMED Code(s): 48171595 Comment: Troponin peaked yesterday at 35.72. Continue heparin drip, ASA, plavix, lipitor and coreg (increasing dose back to 25mg BID). Debate is occuring about taking the patient to the laborer ammunition assembly and the optimal time to do so. He has still been having intermittent chest pain. Continue prn NTG SL +/- paste. (2) Chronic kidney disease, stage IV (severe) Current Visit: Yes Status: Acute Code(s): N18.4 - CHRONIC KIDNEY DISEASE, STAGE 4 (SEVERE) SNOMED Code(s): 242137181 Comment: Creatinine late 01/2019 dropped to 1.8 from around 4 earlier in the month. At that time his lisinopril was stopped and he was told to not take ibuprofen any further. He was seen today by Dr. Mcgarry due to the fact that he needs to have catheterization and the dye load will likely impact his renal function negatively. He has been started on mucomyst per Dr. Mcgarry's recommendations. He is mildly fluid overloaded at this time and will likely need dialysis post catheterization. (3) Hypercalcemia Current Visit: Yes Status: Acute Code(s): E83.52 - HYPERCALCEMIA SNOMED Code(s): 49849261 Comment: Ca was elevated to 13.1 on admission. This in conjunction with anemia and renal failure makes me concerned for MM. SPEP and kappa/lambda free light chains have been sent. ? if Ca was up related to ingestion of TUMS and dehydration. Follow up Ca level tomorrow. (4) Type II diabetes mellitus Current Visit: Yes Status: Acute Comment: Blood sugars are generally under ok control. Continue lispro sliding scale. On d/c pt should not go home on metformin give his CKD. He presented with a lactic acidosis this admission which may be related to taking the metformin in the setting of renal failure. (5) DVT prophylaxis Current Visit: Yes Status: Acute Code(s): Z29.9 - ENCOUNTER FOR PROPHYLACTIC MEASURES, UNSPECIFIED SNOMED Code(s): 676208067 Comment: heparin drip (6) Full code status Current Visit: Yes Status: Acute Code(s): Z78.9 - OTHER SPECIFIED HEALTH STATUS SNOMED Code(s): 379548361
[2019-05-14] MEDS ORDERED: Amiodarone 150 MG IVPREMIX* 150 MG/100 ML BAG IV ONE (11:35)
[2019-05-14] MEDS ORDERED: Clopidogrel TAB* 300 MG PO ONE (11:36)
[2019-05-14] MEDS ORDERED: Amiodarone 360 MG IVPREMIX* 360 MG/200 ML BAG IV ONE (11:36)
[2019-05-14] MEDS ORDERED: Potassium Chloride* LIQUID 20 MEQ/15 ML UDC PO ONE (11:42)
[2019-05-14 11:49] LABS: Cholesterol 66 mg/dL; HDL Cholesterol 22.4 mg/dL; LDL Cholesterol 9 mg/dL; Triglycerides 174 mg/dL
[2019-05-14 11:54] LABS: ABS Eosinophils 0.1 10^3/ul (0-0.6); ABS Monocytes 0.5 10^3/ul (0-0.8); ABS Neutrophils 5.8 10^3/ul (1.5-7.7); Eosinophil % 0.7 %; Hematocrit 25 % (42-52); Hemoglobin 8.9 g/dL (14.0-18.0); Lymphocyte % 13.8 %; Mean Corpuscular HGB Conc 35 g/dL (31-36); Mean Corpuscular Hemoglobin 31 pg (27-31); Mean Corpuscular Volume 87 fL (80-94); Mean Platelet Volume 8.4 fL (7.4-10.4); Platelet Count 137 10^3/uL (150-450); Red Blood Count 2.91 10^6 /uL (4.18-5.48); Red Cell Distribution Width 14 % (10-15); White Blood Count 7.5 10^3/uL (3.5-10.8)
--- NOTE | 2019-05-14 12:41 | CONS ---
CC: Dr. Boyd Burns CARDIOLOGY CONSULTATION: ADDENDUM: After I saw Mr. Hidalgo yesterday, I had the opportunity to talk to his supply chain specialist from [place], [place], Dr. Ann. Dr. Ann performed a cardiac catheterization on Mr. Hidalgo zaida k in 2015. At that time, he had an equivocal stress test. The cath revealed a 50% LAD lesion and a 60% small ramus branch ostial lesion. It was felt that he had nonobstructive disease and he was anjali ge medically. Dr. Ann has kindly agreed to fax the cath report when he returns to his office. Dr. Ann's number is [phone]. [id number]/[facility] #: [id number]
[2019-05-14] MEDS: Acetylcysteine CAP (RENAL)* 600 MG PO SCH ×2 (14:20→19:37)
--- NOTE | 2019-05-14 15:25 | ECHO ---
*[facility]* [place] [address] Fax #: [phone] Transthoracic Echocardiogram Patient: Doug Hidalgo : 1960 Study Date: 05/14/2019 Age: 58 Gender: M HR: 87 bpm Height: 69 in /175.3 cm BSA: 2.07 m^2 Weight: 201.6 lb /91.6 kg BMI: 29.8 kg/m^2 *Blower And Compressor Assembler: * Velvet Olivares RDCS RN *Referring Physician: * Boyd Burns MD *Reading Physician: * Boyd Burns MD Indications: Myocardial Infarction. Chest Pain, unspecified. Abnormal EKG. History: Coronary artery disease. Risk factors: Hypertension. Diabetes mellitus. Obese. Dyslipidemia. Conclusions Summary: - Left ventricle: The cavity size is normal. Wall thickness is moderately increased. Systolic function is mildly to moderately reduced. The estimated ejection fraction is 40-45%, closer to 40%. Akinesis of the basalinferior myocardium. Doppler parameters are consistent with abnormal left ventricular relaxation (grade 1 diastolic dysfunction). - Right ventricle: Systolic function is low normal. - Mitral valve: There is trace to mild regurgitation. - Aortic valve: The annulus is mildly calcified. The valve is trileaflet. The leaflets are mildly thickened. The left coronary cusp is moderately thickened. - Tricuspid valve: There is no evidence of stenosis. Study data: Transthoracic echocardiogram. Procedure: Transthoracic echocardiography was performed. Image quality was fair. The study was technically limited due to body habitus. Intravenous Definity 3 ml was administered for image enhancement. Complete 2D, spectral Doppler, and color flow Doppler. Location: Bedside. Patient status: Inpatient. Patient room number: ICU 2. No prior study is available for comparison. Rhythm: Normal sinus rhythm. Findings Left ventricle: The cavity size is normal. Wall thickness is moderately increased. Systolic function is mildly to moderately reduced. The estimated ejection fraction is 40-45%, closer to 40%. Regional wall motion abnormalities: Hypokinesis of the inferolateral myocardium. Akinesis of the basalinferior myocardium. Dyskinesis of the basal inferior myocardium; hypokinesis of the basal-mid inferoseptal and mid inferolateral myocardium; moderate hypokinesis of the mid inferior myocardium. Doppler parameters are consistent with abnormal left ventricular relaxation (grade 1 diastolic dysfunction). Right ventricle: The cavity size is normal. Systolic function is low normal. Left atrium: The atrium is normal in size. Right atrium: The atrium is normal in size. Mitral valve: The leaflets are mildly thickened. There is no evidence of stenosis. There is trace to mild regurgitation. Aortic valve: The annulus is mildly calcified. The valve is trileaflet. The leaflets are mildly thickened. The left coronary cusp is moderately thickened. There is no evidence of stenosis. There is no regurgitation. Tricuspid valve: The valve is structurally normal. There is no evidence of stenosis. There is trace to mild regurgitation. Pulmonic valve: The valve is structurally normal. There is no evidence of stenosis. There is trace regurgitation. Aorta: Aortic root: The aortic root is not dilated. Ascending aorta: The ascending aorta is not dilated. Aortic arch: The aortic arch is not dilated. Pericardium: There is no pericardial effusion. Pulmonary arteries: The main pulmonary artery is normal-sized. Systolic pressure can not be accurately estimated. Systemic veins: Inferior vena cava: The vessel is dilated. There is (< 50%) respiratory change in the IVC dimension. Measurements Left ventricle Value Ref Aortic valve Value Ref JOVANNA, LAX 4.9 cm 4.2 - 5.8 Mag diam, ED 2.4 cm ---- ESD, LAX 4.0 cm 2.5 - 4.0 Mag diam/bsa, ED 1.2 cm/m^2 ---- FS, LAX (L) 19 % 25 - 43 Peak v, S 1.11 m/sec ---- PW, ED (H) 1.3 cm 0.6 - 1.0 VTI, S 22.8 cm ---- IVS/PW, ED 1.22 Mean grad, S 3.0 mm Hg ---- E', lat mag, TDI 12.1 cm/sec >=10.0 Peak grad, S 5.0 mm Hg - --- E/e', lat mag, 10 LVOT/AV, VTI ratio 0.67 ---- TDI E', med mag, TDI (L) 5.3 cm/sec >=7.0 Mitral valve Value R ef E/e', med mag, 23 Peak E 1.22 m/sec ---- TDI Peak A 0.86 m/sec ---- E', avg, TDI 8.7 cm/sec Decel time 134 ms ---- E/e', avg, TDI 14 <=14 Peak grad, D 6.0 mm Hg - --- Peak E/A ratio 1.4 ---- LVOT Value Ref Peak margaret, S 0.77 m/sec Pulmonic valve Value Ref VTI, S 15.3 cm Peak v, S 0.74 m/sec ---- Mean grad, S 1 mm Hg Peak grad, S 2.0 mm Hg ---- Ventricular septum Value Ref Aortic root Value Ref IVS, ED (H) 1.6 cm 0.6 - 1.0 Root diam 3.8 cm <4.2 Right ventricle Value Ref Ascending aorta Value Ref JOVANNA minor ax, A4C 3.3 cm 1.9 - 3.5 AAo AP diam, S 3.3 cm ---- mid Aortic arch Value Ref Left atrium Value Ref Arch diam 2.6 cm ---- AP dim, ES 3.70 cm 3.00 - 4.00 Decending aorta Value Ref ML dim, A4C 4.7 cm Binta peak margaret 0.52 m/sec ---- SI dim, A4C 4.4 cm Vol/bsa, ES, 1-p 25 ml/m^2 12 - 37 Inferior vena cava Value Ref A4C Diam 2.7 cm ---- Vol/bsa, ES, A/L 28 ml/m^2 16 - 34 Right atrium Value Ref SI dim, ES 4.3 cm 3.4 - 5.3 ML dim, ES, A4C 4.2 cm 2.6 - 4.4 SI dim, ES, A4C 4.3 cm 3.4 - 5.3 SI dim/bsa, ES, 2.1 cm/m^2 1.8 - 3.0 A4C Estimated RAP 15 mm Hg Legend: (L) and (H) angelia values outside specified reference range. Prepared and electronically signed by Boyd Burns MD 05/14/2019 15:25
[2019-05-14] MEDS ORDERED: Carvedilol TAB* 6.25 MG PO ONE (16:24)
--- NOTE | 2019-05-14 19:30 | CONS ---
INTERVENTIONAL CARDIOLOGY CONSULT NOTE: DATE OF CONSULT: 05/14/19 REQUESTING PHYSICIAN: Dr. Burns. PRIMARY CARE PHYSICIAN: Dr. Simone Begum in [place], [place], office number [phone]. HISTORY OF PRESENT ILLNESS: A 58-year-old male with a history of hypertension, diabetes, admitted here with a non-ST elevation infarct in the setting of rapid atrial fibrillation. Approximately 2 years ago, he had a cath in [place], from talking with his form coverer, he had a 60% ramus stenosis. The test was apparently prompted by nonspecific EKG changes and a borderline stress test. He was continued on medical therapy. He has no known history of atrial fibrillation. For the past 2 weeks, he has had recurring episodes of what he felt was indigestion, which he describes as a feeling like an elephant sitting on his chest, but always postprandial, lasting typically 30 to 40 minutes before being relieved by several Tums. Also, a month or so ago, he was apparently found to have abnormal renal function, his lisinopril was reduced as was his metformin and apparently his creatinine improved. He has no history of bone pain or known malignancy, myeloma. Since admission, he has had 2 episodes of angina, the first one with getting out of bed to go to the bathroom, the second at rest, from talking with his nurse, the first was accompanied by an increase in his systolic blood pressure to around 160, but unchanged heart rate in the 80s, the second one was without change in his vitals, each responded promptly to nitroglycerin. He was started on carvedilol this morning around noontime, is not beta blocked. He tells me he had evaluation by security operations specialist a few weeks ago, which included a renal ultrasound, which probably was just to look at renal size as he has no recollection of Doppler recordings during the study. He does have a history of hypertension for some 10 years, but reports good control. PAST MEDICAL HISTORY: Reported in his H and P. PRE-HOSPITAL MEDICATIONS: Listed in H and P and Dr. Burns's consult. FAMILY HISTORY: He does have a strong family history of premature coronary artery disease with a mother who had angioplasty in her 50s. SOCIAL HISTORY: Reported in his H and P. PHYSICAL EXAM: He is articulate, moderately overweight. His most recent blood pressure 147/83; heart rate of 87, sinus rhythm. His lungs, he has rales one- third bilaterally, has been getting IV fluid for his hypercalcemia and renal insufficiency. He is not tachypneic, is mildly dyspneic. JVP is mildly elevated at approximately 14 cm of water. He does not have a Kussmaul sign. Carotids are normal. HEENT: Unremarkable. Cardiac exam notable only for an S4 gallop. Abdomen without tenderness, normal bowel sounds, I cannot feel the aorta and he has no audible abdominal bruits. Femoral pulses are palpable as are radials. I can feel the dorsalis pedis bilaterally, but I cannot feel the posterior tibial on either side. He has no edema, cyanosis, or clubbing. DIAGNOSTIC STUDIES/LAB DATA: His admission hemoglobin was 11.2, today it was 8.8 with a repeat of 8.9 after hydration. Platelet count is low at 137,000, sed rate is high at 48. His admission creatinine 3.89 with a calcium of 13.1. His troponin peaked at 35.7 yesterday and has declined. His BNP is high at 562. EKG on admission showed rapid atrial fibrillation with diffuse ST depression, post conversion back to sinus rhythm he has diffuse nonspecific ST changes. Formal echo is pending. IMPRESSION AND PLAN: Non-ST elevation infarct. This occurred in the setting of rapid atrial fibrillation with known moderate ramus stenosis by cath 2 years ago. His admission is in the midst of apparently acute renal failure with hypercalcemia. Obviously, multiple myeloma is high on the list of differential diagnoses. He has had 2 episodes of angina post admission, but he is not beta blocked. I discussed with him and his that emergent catheterization would be appropriate for ST- elevation infarct, shock or refractory ischemia/ arrhythmia. That does not pertain. Especially if he has multiple myeloma, he would develop need for dialysis if exposed to contrast. Hence, recommendation is to maximize his anti-ischemic regimen under the direction of Dr. Burns. I recommend risk stratifying him with a Lexiscan. Studies for multiple myeloma are pending. Thanks for the consultation, he will be followed by Dr. Burns and noninvasive group. We are available for further assistance as needed. [id number]/[facility] #: [id number] GERRI
[2019-05-14] MEDS: Carvedilol TAB* 25 MG PO SCH (19:37)
[2019-05-15] MEDS: Morphine INJ* 2 MG/ML 1 ML SYRINGE (TWO MG - NEW SYRINGE VERSION) IV PRN ×3 (01:56→13:10)
[2019-05-15] MEDS: Nitroglycerin TAB 0.4 MG* 0.4 MG TAB SL PRN ×5 (01:58→10:04)
[2019-05-15 05:34] LABS: ABS Eosinophils 0.1 10^3/ul (0-0.6); ABS Lymphocytes 1.4 10^3/ul (1.0-4.8); ABS Monocytes 0.4 10^3/ul (0-0.8); Hematocrit 21 % (42-52); Hemoglobin 7.3 g/dL (14.0-18.0); Lymphocyte % 28.6 %; Mean Corpuscular HGB Conc 35 g/dL (31-36); Mean Corpuscular Hemoglobin 30 pg (27-31); Mean Corpuscular Volume 87 fL (80-94); Mean Platelet Volume 8.3 fL (7.4-10.4); Platelet Count 120 10^3/uL (150-450); Red Blood Count 2.39 10^6 /uL (4.18-5.48); Red Cell Distribution Width 14 % (10-15); White Blood Count 4.9 10^3/uL (3.5-10.8)
[2019-05-15 05:54] LABS: EGFR African American 20.3 (>60); EGFR Non-African American 16.8 (>60)
[2019-05-15] MEDS ORDERED: Senna TAB PO ONE (07:31)
[2019-05-15] MEDS ORDERED: Polyethylene Glycol 3350* 17 GM PACKET PO PRN (07:32)
[2019-05-15 08:02] LABS: Calcium 9.4 mg/dL (8.6-10.3); Potassium 3.8 mmol/L (3.5-5.0)
--- NOTE | 2019-05-15 08:25 | CONS ---
NEPHROLOGY CONSULTATION NOTE: DATE OF CONSULT: 05/15/19 HISTORY OF PRESENT ILLNESS: I saw Mr. Hidalgo yesterday. Mr. Hidalgo is a 58- year-old gentleman with a history of diabetes mellitus type 2 of approximately 10 years' duration. He has no history of diabetic retinopathy nor neuropathy. He has a history of hypertension. He presented with approximately 2 weeks of generalized weakness and lack of energy. He then began to have chest heaviness and discomfort on Wednesday morning, and he presented to the hospital. He thought that his discomfort was actually indigestion and he took antacids and had some relief on some of the occasions. He has old history of coronary artery disease which was single vessel. His course is significant, in that in November he had surgery to his rotator cuff. After that, he had been having some shoulder pain and he was taking ibuprofen as well as previously prescribed lisinopril and metformin. He was noted on a routine followup to have an elevated serum creatinine. He was consulted on by commercial insurance underwriter in the [place] area, who reduced his lisinopril and metformin and removed the ibuprofen, and apparently, his renal function improved, but did not return to normal. He is feeling much better at the present time without chest discomfort or shortness of breath. However, he has had chest discomfort while he has been here in the hospital. Of note, he was having some atrial fibrillation with a rapid ventricular response rate while he was in the emergency room. MEDICATIONS: The medications at the time of admission include: 1. Tums on a p.r.n. basis. 2. Aspirin 81 mg daily. 3. Rosuvastatin 20 mg daily. 4. Tradjenta 5 mg daily. 5. Folic acid 1 mg daily. 6. Fenofibrate 134 mg daily. 7. Coreg 25 mg b.i.d. 8. Glyburide with metformin 5/500 four daily. ALLERGIES: He has no medical allergies. FAMILY HISTORY: His mother had coronary artery disease in her 50s. SOCIAL HISTORY: He does not use alcohol or tobacco. REVIEW OF SYSTEMS: Otherwise unremarkable. PHYSICAL EXAMINATION: He is a well-developed, well-nourished white gentleman. His blood pressure has typically been in the low 100 range systolic with diastolics in the 60s, pulses typically in the mid 70s. On HEENT, he is normocephalic. He is anicteric. His extraocular muscles are intact. His mucous membranes are moist. There is no jugular venous distension. He had some rales about half way up posteriorly. The heart revealed a regular rhythm. I could not hear any murmurs. The abdomen was soft and nontender. Bowel sounds were positive. Extremities revealed no edema. There was no clubbing. There was, however, some spoon nails noted. DIAGNOSTIC STUDIES/LAB DATA: A review of his laboratory studies reveals sodium 139, potassium 3.4, total CO2 of 27, chloride 106, glucose 168, creatinine of 3.96. His maximum creatinine was 4.2. Of significance, he has had an elevated serum creatinine that was 13.1 on presentation. He has been hydrated and it has come down to 10.3. His PTH level was suppressed at 5.7. At that time, his calcium was 11.8. His troponin has reached a peak of 35.72, now at 13.88. Urinalysis revealed 1+ protein, trace ketones, 2+ blood, 1+ rbc's, 3+ glucose. A chest x-ray has revealed some early pulmonary edema. IMPRESSION: 1. Acute on chronic renal insufficiency on the basis of his recent myocardial infarction. 2. Diabetic nephropathy which is probably chronic, although we need data from his commercial insurance underwriter in [place]. 3. Diabetes mellitus type 2. 4. Hypercalcemia. I understand the hypercalcemia is being worked up at the present time. The results from his commercial insurance underwriter in [place] will assist with the investigation of the hypercalcemia. Hyperparathyroidism is less likely because of the suppressed parathyroid hormone level. Obviously vitamin A and vitamin D levels may be looked at. The possibility of malignancies obviously are on the list as well as sarcoidosis, although his chest x-ray really does not look like sarcoidosis. DISCUSSION: There is concern that he might need to undergo cardiac catheterization. If so, I think it is highly likely that he will sustain another injury to his renal function. That injury has a reasonable probability of requiring hemodialysis. I would recommend that we initiate an n-acetyl cysteine in order to be able to get whatever nephroprotection we can out of it. I think the risks are low, and while the studies have been variable with their outcomes, there are many nephrologic studies which demonstrate benefit, although a large cardiologic study did not. I think he is a little volume overloaded at the present time, but he is actually oxygenating well, and as a result, I would not diurese him unless his respiratory status required it. Of significance is his hemoglobin was a little low at 11.2 when he was admitted, but it has been coming down since. This would add a little bit of evidence towards multiple myeloma considering his hypercalcemia. However, with his chronic renal insufficiency, this may be nothing more than the anemia of chronic renal disease. An erythropoietin level would be helpful. I have discussed the case with Dr. Tapia and with Dr. Houser. [id number]/[facility] #: [id number] MTDD
[2019-05-15] MEDS: Aspirin EC TAB* 81 MG TAB.EC PO SCH (08:34)
[2019-05-15] MEDS: Pantoprazole TAB * 40 MG TAB PO SCH (08:34)
[2019-05-15] MEDS: Carvedilol TAB* 25 MG PO SCH (08:34)
[2019-05-15] MEDS: Acetylcysteine CAP (RENAL)* 600 MG PO SCH (08:34)
[2019-05-15] MEDS: Insulin LISPRO* 1 UNITS UNIT SUBCUT SCH ×2 (08:34→13:05)
[2019-05-15] MEDS ORDERED: Atorvastatin* 80 MG TAB PO SCH (09:00)
[2019-05-15] MEDS ORDERED: Clopidogrel TAB* 75 MG PO SCH (09:00)
--- NOTE | 2019-05-15 09:22 | PN ---
Subjective Date of Service: 05/15/19 Interval History: Pt is feeling well currently. He states he had a restless night. He did have an episode of chest discomfort that awakened him from sleep. He states the pain level was about 1/10 but felt it creeping up and he started to feel SOB. He received a dose of morphine which resolved the pain. This AM no chest pain or SOB. No other complaints. He has not had a BM in several days but thinks he will today. Objective Active Medications: Acetaminophen (Tylenol Tab*) 650 mg PO Q4H PRN PRN Reason: FEVER/PAIN Last Admin: 05/13/19 07:54 Dose: 650 mg Acetylcysteine (Acetylcysteine Cap (Renal)*) 600 mg PO BID [facility] Stop: 05/15/19 21:01 Last Admin: 05/15/19 08:34 Dose: 600 mg Aspirin (Aspirin Ec Tab*) 81 mg PO DAILY [facility] Last Admin: 05/15/19 08:34 Dose: 81 mg Atorvastatin Calcium (Lipitor*) 80 mg PO DAILY [facility] Last Admin: 05/15/19 08:34 Dose: 80 mg Carvedilol (Coreg Tab*) 25 mg PO BID [facility] Last Admin: 05/15/19 08:34 Dose: 25 mg Clopidogrel Bisulfate (Plavix Tab*) 75 mg PO DAILY [facility] Last Admin: 05/15/19 08:34 Dose: 75 mg Dextrose (Dextrose 50% Vial 50 Ml*) 25 ml IV PUSH .FOR FS < 60 - SS PRN PRN Reason: FS < 60 Heparin Sodium (Porcine) (Heparin Vial(*)) 0 units IV .BOLUS PRN PRN Reason: HEPARIN DRIP PROTOCOL Last Admin: 05/13/19 07:32 Dose: 4,000 units Heparin Sodium/Dextrose (Heparin Drip 25,000 Units(*)) 25,000 units in 500 mls @ 0 mls/hr IV PER RATE [facility]; Protocol Last Admin: 05/14/19 05:13 Dose: 20 mls/hr Insulin Human Lispro (Humalog*) 0 units SUBCUT ACHS [facility]; Protocol Last Admin: 05/15/19 08:34 Dose: 2 units Morphine Sulfate (Morphine Inj (Syringe))*) 2 mg IV Q4H PRN PRN Reason: Pain - Mod to severe Last Admin: 05/15/19 09:00 Dose: 2 mg Nitroglycerin (Nitroglycerin Tab 0.4 Mg*) 0.4 mg SL Q5M PRN PRN Reason: ANGINA Last Admin: 05/15/19 09:00 Dose: 0.4 mg Ondansetron HCl (Zofran Inj*) 4 mg IV Q4H PRN PRN Reason: NAUSEA/VOMITING Pantoprazole Sodium (Protonix Tab*) 40 mg PO DAILY [facility] Last Admin: 05/15/19 08:34 Dose: 40 mg Polyethylene Glycol/Electrolytes (Miralax*) 17 gm PO DAILY PRN PRN Reason: CONSTIPATION Last Admin: 05/15/19 08:34 Dose: 17 gm Vital Signs - 8 hr 05/15/19 05/15/19 05/15/19 01:30 01:54 01:56 Temperature Pulse Rate 87 80 Respiratory 23 20 20 Rate Blood Pressure 116/71 104/62 (mmHg) O2 Sat by Pulse 99 96 Oximetry 05/15/19 05/15/19 05/15/19 02:00 02:02 02:30 Temperature Pulse Rate 82 81 76 Respiratory 18 14 19 Rate Blood Pressure 102/53 93/61 (mmHg) O2 Sat by Pulse 96 95 97 Oximetry 05/15/19 05/15/19 05/15/19 03:00 03:01 03:30 Temperature Pulse Rate 78 77 77 Respiratory 14 17 16 Rate Blood Pressure 110/68 111/70 (mmHg) O2 Sat by Pulse 98 98 99 Oximetry 05/15/19 05/15/19 05/15/19 04:00 04:01 04:30 Temperature 98.4 F Pulse Rate 77 76 76 Respiratory 16 18 3 Rate Blood Pressure 108/63 104/62 (mmHg) O2 Sat by Pulse 99 98 99 Oximetry 05/15/19 05/15/19 05/15/19 05:00 05:30 05:44 Temperature Pulse Rate 76 73 Respiratory 0 17 16 Rate Blood Pressure 104/63 93/47 (mmHg) O2 Sat by Pulse 99 98 Oximetry 05/15/19 05/15/19 05/15/19 06:00 06:07 06:30 Temperature Pulse Rate 75 87 Respiratory 19 16 15 Rate Blood Pressure 113/64 105/70 (mmHg) O2 Sat by Pulse 99 95 Oximetry 05/15/19 05/15/19 05/15/19 07:00 07:30 08:00 Temperature 98.4 F Pulse Rate 74 79 Respiratory 19 17 Rate Blood Pressure 103/63 103/56 (mmHg) O2 Sat by Pulse 99 96 Oximetry 05/15/19 09:00 Temperature Pulse Rate Respiratory 10 Rate Blood Pressure (mmHg) O2 Sat by Pulse Oximetry Oxygen Devices in Use Now: Nasal Cannula - 3L-98% Appearance: Middle aged male lying in bed, NAD Eyes: No Scleral Icterus Ears/Nose/Mouth/Throat: Mucous Membranes Moist Respiratory: Symmetrical Chest Expansion and Respiratory Effort, - - diffuse crackles in all lung li Cardiovascular: NL Sounds; No Murmurs; No JVD, RRR, No Edema Abdominal: NL Sounds; No Tenderness; No Distention Extremities: No Clubbing, Cyanosis Skin: No Nodules or Sclerosis Neurological: Alert and Oriented x 3 Result Diagrams: 05/15/19 05:23 05/15/19 05:23 Microbiology and Other Data: Microbiology 05/13/19 06:00 Urine Culture - Final Urine No Growth (<1,000 CFU/mL) 05/13/19 07:00 Nasal Screen MRSA (PCR) - Final Nasal Mrsa Not Detected Assess/Plan/Problems-Billing Mr Hidalgo is a 58 yo M who has a h/o non-obstructive CAD, type II DM and CKD who presented to the ER with c/o chest pain and was admitted for NSTEMI. - Patient Problems (1) NSTEMI (non-ST elevated myocardial infarction) Current Visit: Yes Status: Acute Code(s): I21.4 - NON-ST ELEVATION (NSTEMI) MYOCARDIAL INFARCTION SNOMED Code(s): 49849875 Comment: Troponin peaked at 35.72. Continue heparin drip, ASA, plavix, lipitor and coreg. Given the recurrent episodes of chest pain, I have considered adding isordil but his BP is quite soft today. Debate is occuring about taking the patient to the labor conciliator vs stress testing and the optimal time to do so. Continue prn NTG SL +/- paste. Await further recommendations from cardiology. (2) Chronic kidney disease, stage IV (severe) Current Visit: Yes Status: Acute Code(s): N18.4 - CHRONIC KIDNEY DISEASE, STAGE 4 (SEVERE) SNOMED Code(s): 811279487 Comment: Creatinine has trended down minimally today to 3.75. Continue to avoid nephrotoxic agents. He has been receiving mucomyst in anticipation of needing a catheterization. He remains mildly fluid overloaded but saturating well on 3L O2. Will hold off on diuresis for now. (3) Anemia Current Visit: Yes Status: Acute Code(s): D64.9 - ANEMIA, UNSPECIFIED SNOMED Code(s): 257540642 Comment: The patient's H/H has been steadily dropping over the last few days from admission. His B12 is low normal so will start supplementation. Iron studies are not completely indicative of iron deficiency but he may benefit from supplemental iron. He may purely be anemic related to his CKD. Today with his H/H down to 7.3/ I am going to transfuse 1 unit PRBC given his active CAD. He may need diuresis after the transfusion as he is already mildly fluid overloaded. Stool occult pending pt BM (he thinks he will go today). (4) Hypercalcemia Current Visit: Yes Status: Acute Code(s): E83.52 - HYPERCALCEMIA SNOMED Code(s): 91903333 Comment: Hypercalcemia has resolved. SPEP pending, kappa/lambda free light chains pending. MM is high on the differential but ? if increased Ca also related to TUMS ingestion and dehydration. (5) Type II diabetes mellitus Current Visit: Yes Status: Acute Comment: Blood sugars have generally been under ok control on lispro alone. Continue to follow. The patient and his are aware that he should never take metformin again. (6) DVT prophylaxis Current Visit: Yes Status: Acute Code(s): Z29.9 - ENCOUNTER FOR PROPHYLACTIC MEASURES, UNSPECIFIED SNOMED Code(s): 674873953 Comment: heparin drip (7) Full code status Current Visit: Yes Status: Acute Code(s): Z78.9 - OTHER SPECIFIED HEALTH STATUS SNOMED Code(s): 118914241
[2019-05-15] MEDS ORDERED: Cyanocobalamin TAB* 500 MCG PO SCH (10:00)
[2019-05-15] MEDS ORDERED: Nitro 2% OINT* (Nitroglycerin) 1 INCH/PAK PAK TOPICAL ONE (10:08)
[2019-05-15] MEDS ORDERED: Nitro 2% OINT* (Nitroglycerin) 1 INCH/PAK PAK ONE (10:10)
[2019-05-15] MEDS ORDERED: nitroGLYCERIN DRIP* 25,000 MCG/250 ML BTL ONE (12:00)
[2019-05-15] MEDS ORDERED: nitroGLYCERIN DRIP* 25,000 MCG/250 ML BTL IV SCH (12:00)
[2019-05-15 14:44] VITALS: BP 118/75
[2019-05-15 14:53] LABS: Hematocrit 26 % (42-52)
[2019-05-15] MEDS ORDERED: Metoprolol Tartrate IV* 1 MG/ML 5 ML VIAL IV ONE (16:00)
--- NOTE | 2019-05-15 16:18 | TRS ---
TRANSFER SUMMARY: DATE OF ADMISSION: 05/13/19 DATE OF TRANSFER: To [facility] in [place], 05/15/19. PRIMARY CARE PROVIDER: Dr. Simone Begum. CINDER BLOCK MAKER: Dr. Chauncey Aguilera. PRINCIPAL DIAGNOSES: 1. Lvh-SE-yhesyfsax myocardial infarction. 2. Likely stage 4 chronic kidney disease. 3. Probable adcou-tw-ugnkaih anemia - unclear cause of anemia at this time. SECONDARY DIAGNOSES: 1. Hypertension. 2. Type 2 diabetes. 3. Catheterization in 2016 revealing nonobstructive coronary artery disease. MEDICATIONS ON TRANSFER: 1. Tylenol 650 mg p.o. q.4 hours p.r.n. for pain. 2. Acetylcysteine 600 mg p.o. b.i.d. - the patient has had 3 doses. 3. Aspirin 81 mg p.o. daily. 4. Lipitor 80 mg p.o. daily. 5. Coreg 25 mg p.o. twice daily. 6. Plavix 75 mg p.o. daily. 7. Vitamin B12 at 1000 mcg p.o. daily. 8. Heparin drip at 1000 units per hour. 9. Lispro via sliding scale subcutaneous a.c. h.s. 10. Morphine sulfate 2 mg IV q.4 hours p.r.n. for pain. 11. Nitroglycerin 0.4 mg SL q.5 minutes p.r.n. for chest pain. 12. Nitroglycerin drip at 25 mcg per minute. 13. Zofran 4 mg IV q.4 hours p.r.n. for nausea. 14. Protonix 40 mg p.o. daily. 15. MiraLAX 17 g p.o. daily p.r.n. for constipation. HOSPITAL COURSE: Mr. Hidalgo is a 58-year-old male who was visiting [place] so his son could try out for the [place] football team when he developed nausea, vomiting, and substernal chest pain at approximately 4 p.m. The pain was described as being a 6/10 in intensity. Ultimately, around 3 a.m., on 05/13/19 , the patient continued to have ongoing chest pain and therefore presented to the emergency room for evaluation. The patient was noted to be in rapid atrial fibrillation with a heart rate in the 150s on presentation. The patient was admitted to the intensive care unit for evaluation of what was initially felt to be unstable angina and rapid atrial fibrillation. The patient was started on a diltiazem drip and with this, his heart rate improved; however, after speaking with cardiology, the hospitalist administered 5 mg of IV metoprolol and with this, the patient's atrial fibrillation broke into normal sinus rhythm which he has remained in since he converted. Also, in the emergency room, the patient was found to be markedly hypercalcemic with a calcium of 13 and his creatinine was elevated at 3.8. In addition to the severe pain that started around 4 p.m. on the day prior to admission, over the last 2 weeks prior to admission, the patient had not been feeling well. He has been feeling worn down and tired. He had had intermittent nausea and vomiting. He had been having heartburn, for which he was taking up to 10 Tums per day. The patient on the morning of 05/13/19 was noted to have a climbing troponin. The troponin ultimately peaked at 35.72 on 05/13/19 at 1718. The patient was being medically managed for his non-STEMI with aspirin, a heparin drip, statin, and beta- nano therapy. On 05/13/19, the patient was essentially chest pain- free. He did receive IV fluids for his elevated creatinine and mild lactic acidosis; however, in retrospect, the lactic acidosis may be secondary to the patient being on metformin in the setting of probable chronic kidney disease. In terms of the patient's renal function, his creatinine was 3.89 on presentation, but went up to 4.02. After the hydration, this has trended down very slightly to 3.75. Of note, the patient had an elevated creatinine of approximately 4 at the beginning of January of this year. At that time, he was taking NSAIDs, lisinopril, and metformin. The patient's lisinopril and NSAIDs were completely discontinued. With this, reportedly, his creatinine trended down to 1.8 at the end of January. It is unclear where his labs have been most recently. In the mid morning of 05/14/19, the patient got up to the toilet and noted chest pain. He received a sublingual nitroglycerin and with this, the pain resolved. Once back in bed, however, the pain returned. He received another sublingual nitroglycerin and was started on nitro paste. In the afternoon of 05/14/19, while at rest in the bed, the patient again developed another episode of chest pain. The nitroglycerin paste was replaced with new paste. From that time, until the nailing machine feeder of 05/15/19, the patient was essentially chest pain- free. The patient did awaken from sleep on the morning of 05/15/19 with complaints of mild chest pain and associated shortness of breath. He was given morphine at that time and the pain resolved. Since that time, however, the patient has continued to have intermittent episodes of chest pressure. They have been relieved by nitroglycerin each time until the last. At that point, a nitroglycerin infusion was started at 5 mcg per minute and has since been titrated up to 25 mcg per minute. Plavix was added to the patient's medication regimen on 05/14/19. The patient was seen by both general cardiology and interventional cardiology. Given his renal failure and now progressive anemia, there has been hesitation in moving forward with cardiac catheterization. Because of the patient's ongoing intermittent chest pain episodes and complex nature of his medical situation, the decision was made to transfer the patient to a tertiary care center, where the patient can receive advanced care not able to be provided [place] [facility] At the time of transfer, the patient is chest pain-free on a heparin drip at 1000 units per hour, a nitroglycerin infusion at 25 mcg per hour, aspirin, Plavix, Coreg 25 mg twice daily, and Lipitor 80 mg daily. The patient will be receiving metoprolol 5 mg IV x1 prior to transfer to get his heart rate closer to 60 to 70 as opposed to the 80s and 90s. It is felt that the patient does need cardiac catheterization ; however, the optimal timing of this is not clear due to the many other issues. In terms of the patient's probable chronic kidney disease, as discussed above, the patient had an elevated creatinine of approximately 4 at the beginning of January. My suspicion is the patient's baseline creatinine is not around 1.8, but higher as there has been no improvement in his renal function essentially the entire time he has been here despite IV fluid hydration. The patient was seen in consultation by Dr. Mcgarry from nephrology. He recommended starting Mucomyst in anticipation of cardiac catheterization; however, this has not been performed and likely, the patient does not need the last dose; however, there may be benefit in providing Mucomyst prior to and after the catheterization. The patient and Dr. Mcgarry did discuss that he may need dialysis following catheterization. The patient will need continued monitoring of his renal function. With the hypercalcemia that was noted on admission, it was questioned whether or not this may have been secondary to the patient ingesting multiple Tums per day and being slightly volume deplete. The calcium did trend down to normal by 05/14/19. Given the renal failure, the hypercalcemia and anemia, a workup for multiple myeloma has been sent. Pending at the time of this dictation is an SPEP, UPEP, and kappa and lambda free light chains. The patient, as above, also had a mild lactic acidosis of 2.8, up to 3.1 on admission. The patient never showed any signs of infection. I question whether or not the lactic acidosis is related to the patient taking metformin in the setting of stage 4 chronic kidney disease. The patient has also been anemic. On presentation, his hemoglobin was 11.2. This subsequently trended down to 7.3 without any overt signs of bleeding. The patient has had no bowel movements while hospitalized. Prior to hospitalization , he denied any bright red blood per rectum or black stools. I question if his anemia may be related to B12 deficiency as his B12 level is low normal at 230. His iron studies are questionable for iron deficiency, but he also likely has anemia of chronic kidney disease. The patient with a hemoglobin of 7.3 and active AK/ongoing chest pain, received 1 unit of packed red blood cells on 05/15. An erythropoietin level should be sent. This was ordered; however, not sent prior to the patient being transferred. The patient may need a GI evaluation prior to proceeding with cardiac catheterization due to the worsened anemia. The patient is also mildly thrombocytopenic with a platelet count of 120. The patient did have a slight nosebleed prior to transfer. The patient received normal saline at 150 mL per hour for over 24 hours. By , it was clear that the patient was mildly fluid overloaded with crackles on exam and the need for supplemental oxygen at 2 to 4 L per minute. The patient did not receive diuresis due to his renal function. He was not visibly in any distress. It was felt that we could off on diuresing the patient for the time being. A transthoracic echocardiogram obtained on 05/14/19 revealed his systolic function to be mildly to moderately reduced with an EF estimated to be 40% to 45%, closer to 40%. There is akinesis of the basal inferior myocardium. Doppler parameters are consistent with abnormal left ventricular relaxation. The right ventricular systolic function was felt to be low normal. In terms of the patient's type 2 diabetes, the patient has been maintained on a lispro sliding scale alone. With this, his sugars have generally been under okay control. He was on a combination of glyburide/metformin on admission. I have discussed with the patient and his that he can no longer take metformin due to his renal function. FOLLOWUP CONCERNS: The patient is being transferred to [facility] in [place] today, 05/15/19. ACTIVITY: Limited to bed to commode. CONDITION ON DISCHARGE: Guarded, but stable currently. DIET: Heart-healthy, consistent carbohydrate. TIME SPENT: Sixty minutes were spent on the transfer of this patient and coordinating care. [id number]/[facility] #: [id number] GERRI
[2019-05-15] MEDS ORDERED: Nitro Patch/OINT Remove PATCH OFF ONE (16:30)
[2019-05-15 22:33] LABS: Lambda Free Light Chain 2.66 mg/dL
[2019-05-17 17:50] LABS: Gamma Globulin 1.1 g/dL (0.6-1.6); Total Protein(PEP) 6.4 g/dL (6.3 - 7.9)
[2019-05-18 12:13] LABS: Albumin 64 %; Albumin/Globulin Ratio 1.74 %; Gamma Globulin 12 %; Total Protein(PEP) Urine 35 mg/dL
== END 2019-05-15 15:45 | disposition short-term general hospital (02) | DRG 281 ==
LOC: ED 02:58 → ICU 05:40
PROVIDERS: ADMIT Internal Medicine; ATTEND Hospitalist
PROC: 30233N1 Transfusion of Nonautologous Red Blood Cells into Peripheral Vein, Percutaneous Approach (ICD-10-PCS; principal; 2019-05-15)
DX: I21.4 Non-ST elevation (NSTEMI) myocardial infarction (principal); E87.2 Acidosis; I48.91 Unspecified atrial fibrillation; I10 Essential (primary) hypertension; E11.649 Type 2 diabetes mellitus with hypoglycemia without coma; E11.22 Type 2 diabetes mellitus with diabetic chronic kidney disease; E83.52 Hypercalcemia; E78.00 Pure hypercholesterolemia, unspecified; I25.110 Atherosclerotic heart disease of native coronary artery with unstable angina pectoris; D64.9 Anemia, unspecified; E11.21 Type 2 diabetes mellitus with diabetic nephropathy; Z68.32 Body mass index [BMI] 32.0-32.9, adult; Z82.49 Family history of ischemic heart disease and other diseases of the circulatory system; Z80.42 Family history of malignant neoplasm of prostate; Z79.82 Long term (current) use of aspirin; Z79.02 Long term (current) use of antithrombotics/antiplatelets; Z79.01 Long term (current) use of anticoagulants
CPT/HCPCS: 36415; 71045; 71046; 80048; 80053; 80061; 81003; 81015; 82330; 82607; 82728; 82746; 83540; 83550; 83605; 83880; 83883; 83970; 84155; 84156; 84165; 84166; 84443; 84484; 85014; 85018; 85025; 85610; 85652; 85730; 86140; 86850; 86900; 86901; 86922; 87086; 87641; 93005; 93306; 99285; A9270-GY; C8929; J0780; J1644; J2270; J2405; J3490; P9040